=== PATIENT | male | born 1965 | race Caucasian/White ===

== ENCOUNTER 2017-07-24 20:31 | Emergency (ER) | payer BC ==
[2017-07-24] MEDS ORDERED: Famotidine/PF 20 mg/2ml Vial ONE (21:20)
[2017-07-24] MEDS ORDERED: methylPREDNISolone Sod Succ/PF 125 MG/2 ML VIAL ONE (21:20)
[2017-07-24] MEDS ORDERED: diphenhydrAMINE 50 MG/ML VIAL ONE (21:20)
[2017-07-24] MEDS ORDERED: Water For Inject, Bacteriostat 30 ML ONE (21:21)
== END 2017-07-24 23:13 | disposition home or self-care (01) ==
LOC: ERS 20:31
DX: R21 Rash and other nonspecific skin eruption (principal); R00.2 Palpitations; T39.395A Adverse effect of other nonsteroidal anti-inflammatory drugs [NSAID], initial encounter; Z79.82 Long term (current) use of aspirin; Z79.899 Other long term (current) drug therapy
CPT/HCPCS: 96374; 96375; J1200; J2930; S0028